=== PATIENT | female | born 1950 | race Caucasian/White ===

== ENCOUNTER 2016-06-02 11:55 | Emergency (ER) | payer OTHER ==
[2016-06-02 12:04] VITALS: BMI 19.7
[2016-06-02 12:05] VITALS: TEMP 97.6
[2016-06-02] MEDS ORDERED: NS 500 ML IV ONE (13:09)
--- NOTE | 2016-06-02 13:12 | EDPRACDOC ---
- General Information Chief Complaint: Fall Stated Complaint: FALL - SYNCOPAL EPISODE- NECK/BACK PAIN Time Seen by Provider: 06/02/16 13:02 Information Source: Patient Home Medications: Home Medications Amlodipine [Norvasc] 5 mg PO DAILY 10/13/12 Estropipate 3 mg PO DAILY 10/13/12 Levothyroxine [Synthroid, Levoxyl] 100 mcg PO DAILY 10/13/12 Aspirin (Enteric Coated) [Ecotrin] 81 mg PO DAILY 02/15/15 Gabapentin [Neurontin] 600 mg PO TID 02/15/15 Multivitamin [Multiple Vitamins] 1 each PO DAILY 02/15/15 Doxycycline [Vibramycin] 100 mg PO BID #14 tab 11/12/15 Hydrocodone/Acetaminophen [Lortab 5-325 mg Tablet] 1 each PO Q4H PRN #15 tablet 11/12/15 Prednisone [Deltasone, Orasone] 1 tabs PO BID #18 tab 11/12/15 Lorazepam [Ativan] 0.5 mg PO HS PRN #7 tab 02/23/16 Cyclobenzaprine HCl [Flexeril] 10 mg PO TID PRN #15 tablet 06/02/16 Hydrocodone Bit/Acetaminophen [Lortab 5/325] 1 tab PO Q4-6H PRN #15 tab Allergies/Adverse Reactions: Allergies Allergy/AdvReac Type Severity Reaction Status Date / Time ciprofloxacin [From Cipro] Allergy Severe Hives* Verified 06/02/16 12:01 ciprofloxacin HCl Allergy Severe Hives* Verified 06/02/16 12:01 [From Cipro] clarithromycin [From Biaxin] Allergy Severe Hives* Verified 06/02/16 12:01 codeine [Codeine] Allergy Severe Hives* Verified 06/02/16 12:01 metronidazole [From Flagyl] Allergy Severe Hives* Verified 06/02/16 12:01 Metronidazole HCl Allergy Severe Hives* Verified 06/02/16 12:01 [From Flagyl] Sulfa (Sulfonamide Allergy Severe Hives* Verified 06/02/16 12:01 Antibiotics) [Sulfa(Sulfonamide Antibiotics)] - History of Present Illness 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 Pt states she had a BM and "cleaned up" and was standing when she passed out. Pt states she doesn't remember passing out but her daughter was standing over her screaming at her. C/o neck and lower back pain. C/o nausea. Denies fever, earache, sore throat, congestion, cp, sob, changes in bowel or bladder, vision changes, loss of control bowel or bladder, wounds. 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 (Medication/ [id number] Dose/Time) EMS Treatment ALS,C-Collar,EKG IV No ED Past Medical History - History Reviewed Yes Nurses notes reviewed and agree except as marked - Patient Medical History Cardiac History: Reports: Hypertension Psychological History: Denies: Depression Additional Past Medical History: RESTLESS LEG SYNDROME Surgical History: Reports: Tonsillectomy/Adnoidectomy - Social Medical History Smoking Status: Heavy tobacco smoker (5 or more cigarettes/day or daily pipe/ cigar) ETOH: None Substance Abuse: None EDM Review of Systems - Review of Systems Constitutional: No Symptoms Reported. negative: Fever, Chills, Weakness, Fatigue, Loss of Appetite Eyes: No Symptoms Reported. negative: Redness, Blurred Vision, Double Vision, Discharge, Pain, Light Sensitive, Photophobia Ears: No Symptoms Reported. negative: Pain, Hearing Loss, Drainage, Ear Pulling Throat: No Symptoms Reported Nose: No Symptoms Reported. negative: Congestion, Bleeding, Discharge, Injection, Swelling, Deformity, Ecchymosis, Tender, Abrasion, Laceration Mouth: No Symptoms Reported. negative: Pain, Drooling Respiratory: Cough Cardiovascular: Syncope. negative: No Symptoms Reported, Chest Pain, Cyanosis, Edema, Orthopnea, Palpitations, PND, Skin Mottling Gastrointestinal: Nausea, Pain Genitourinary: No Symptoms Reported. negative: Dysuria, Hematuria, Frequency, Discharge, Bleeding, Testicular Pain, Neurological: Dizziness Musculoskeletal: Back, Neck Integumentary: No Symptoms Reported. negative: Itching, Rash, Bruising, Wound Allergic/Immunologic: No Symptoms Reported. negative: Hives, Itching Hematologic: No Symptoms Reported. negative: Lymphadenopathy, Easy Bruising, Easy Bleeding Psychiatric: No Symptoms Reported. negative: Anxiety, Depression, Hallucinations, Insomnia, Suicidal - Physical Exam Constitutional: Alert Oriented to: Time, Person, Place Last recorded Vital Signs: Last Vital Signs Temp 97.6 F 06/02/16 12:04 Pulse 74 06/02/16 13:05 Resp 18 06/02/16 13:05 BP 99/75 06/02/16 13:05 Pulse Ox 94 06/02/16 13:05 Oxygen Pulse Oxygen Saturation 94 O2 Device Room Air Oxygen Flow Rate Fraction of Inspired Oxygen ( FIO2) - HEENT Head: Normal ( normocephalic) Eye Exam: Normal (PERRL, EOMI, Sclera white) Oropharynx: Normal (Pharynx:Moist without exudate,Gums-no swelling) Tympanic Membrane: Normal ENT EAC: Normal TMJ: Normal Nose: No Symptoms Reported (septum midline) Neck: In Collar, Midline, Paraspinal Tenderness, Tender - Respiratory/Cardiovascular Respiratory: Normal - CTA (BBS clear to auscultation without adventitious sounds ) Cardiovascular: Normal (RRR without murmur, gallop or rub) - GI Auscultation: Normal (NABS) Palpation: Normal (Soft,No rebound or guarding, non distended) Tenderness: Non tender - Musculoskeletal Back: Lumbar TTP Extremities: Normal (Normal tone, Pulses 2+ No cyanosis or edema, FROM) - Integumentary Skin: Normal, Warm, Dry Lymphatics: Normal (no adenopathy) - Neurologic Memory Impaired: Normal Motor Function: Normal (Normal tone, Pulses 2+ No cyanosis or edema, FROM) Mood Description: Normal Perception: Normal - Differential Diagnosis Anemia, Dysrhythmia, Dehydration, Electrolyte Disorder, Hypoglycemia, Vasovagal - Results 06/02/16 13:14 06/02/16 13:50 06/02/16 16:06 Laboratory Results - last 24 hr 06/02/16 06/02/16 06/02/16 13:14 13:14 13:50 WBC 7.9 RBC 4.96 Hgb 15.5 Hct 45.3 MCV 91 MCH 31.2 MCHC 34.2 RDW 12.7 Plt Count 121 L MPV 9.3 Neut % (Auto) 79.9 H Lymph % (Auto) 9.1 L [place] % (Auto) 10.3 H Eos % (Auto) 0.3 Baso % (Auto) 0.4 Absolute Neuts (auto) 6.24 Absolute Lymphs (auto) 0.71 PT 10.2 INR 1.0 APTT 21.5 L Sodium 139 Potassium 3.6 Chloride 104 Carbon Dioxide 25 Anion Gap 14 BUN 11 Creatinine 1.00 Estimated GFR (MDRD) 56 L Glucose 109 H Calculated Osmolality 268 L Calcium 8.5 Corrected Calcium 9.0 Total Bilirubin 0.4 AST 31 ALT 33 Alkaline Phosphatase 83 Troponin I < 0.01 Total Protein 6.1 L Albumin 3.5 Urine Color Urine Clarity Urine pH Ur Specific [place] Urine Protein Urine Glucose (UA) Urine Ketones Urine Occult Blood Urine Nitrite Urine Bilirubin Urine Urobilinogen Ur Leukocyte Esterase Urine RBC Urine WBC Ur Epithelial Cells Urine Bacteria Hyaline Casts Granular Casts Urine Mucus 06/02/16 15:34 WBC RBC Hgb Hct MCV MCH MCHC RDW Plt Count MPV Neut % (Auto) Lymph % (Auto) [place] % (Auto) Eos % (Auto) Baso % (Auto) Absolute Neuts (auto) Absolute Lymphs (auto) PT INR APTT Sodium Potassium Chloride Carbon Dioxide Anion Gap BUN Creatinine Estimated GFR (MDRD) Glucose Calculated Osmolality Calcium Corrected Calcium Total Bilirubin AST ALT Alkaline Phosphatase Troponin I Total Protein Albumin Urine Color Yellow Urine Clarity Clear Urine pH 6.0 Ur Specific [place] 1.010 Urine Protein Neg Urine Glucose (UA) Neg Urine Ketones 1+ H Urine Occult Blood Neg Urine Nitrite Neg Urine Bilirubin Neg Urine Urobilinogen <2.0 Ur Leukocyte Esterase Neg Urine RBC 0-2 Urine WBC 5-10 H Ur Epithelial Cells 2+ Urine Bacteria 2+ H Hyaline Casts 5-10 H Granular Casts 5-10 H Urine Mucus Mod H - EKG EKG #1 EKG Time: 13:21 Rate: bpm: 65 [place]: Normal Rhythm: NSR Block: None ST: Nonsp (avl) - Diagnostic Imaging L-Spine Image interpreted by: Radiologist IMPRESSION: 1. No fracture or traumatic malalignment. Degenerative changes as noted above. 2. There is a sclerotic focus in the left iliac bone which is nonspecific but may represent a bone island. Head Image interpreted by: Radiologist IMPRESSION: No acute intracranial abnormality. Degenerative disc and facet disease. No acute bony abnormality. Chest Image interpreted by: Radiologist IMPRESSION: Hyperinflation. No active disease. Decision Time to Discharge: 16:07 - Departure Disposition: Home Condition: Good Final Diagnosis: Vasovagal syncope Cervical strain, acute Qualifiers: Encounter type: initial encounter Qualified Code(s): S16.1XXA - Strain of muscle, fascia and tendon at neck level, initial encounter Lumbar strain Qualifiers: Encounter type: initial encounter Qualified Code(s): S39.012A - Strain of muscle, fascia and tendon of lower back, initial encounter Instructions: RICE: Routine Care for Injuries, Core Strengthening Exercises ( GEN), Back Pain, Thoracic (Lumbar) Strain, Syncope (ED) Education/Counseling Given To: Patient Education/Counseling Given Regarding: Diagnosis, Treatment, Follow Up Referrals: None,No Provider [Primary Care Provider] - One Week Nikita Chester II, MD [Staff Physician] - One Week Prescriptions: Cyclobenzaprine HCl [Flexeril] 10 mg PO TID PRN #15 tablet PRN Reason: Pain Hydrocodone Bit/Acetaminophen [Lortab 5/325] 1 tab PO Q4-6H PRN #15 tab PRN Reason: Pain Additional Instructions: Increase fluids. Return for worse or different symptoms.
[2016-06-02 13:27] LABS: AUTOMATED BASOPHIL 0.4 % (0-2); AUTOMATED EOSINOPHIL 0.3 % (0-5); AUTOMATED LYMPH 9.1 % (17-44); AUTOMATED MONOCYTE 10.3 % (3-10); AUTOMATED NEUTROPHIL 79.9 % (45-76); MPV 9.3 fL (7.4-10.4)
[2016-06-02 13:34] LABS: PARTIAL THROMB. TIME 21.5 SEC (22-35)
[2016-06-02 14:27] LABS: BLOOD UREA NITROGEN 11 MG/DL (7-17); CALCIUM 8.5 MG/DL (8.4-10.2); CALCULATED OSMOLALITY 268 MOs/Kg (270-290); CHLORIDE 104 mEq/L (98-107); GLUCOSE 109 MG/DL (70-99); SODIUM LEVEL 139 mEq/L (137-146); TOTAL PROTEIN 6.1 G/DL (6.3-8.2)
--- NOTE | 2016-06-02 14:35 | DIRPT ---
CLINICAL DATA: Syncope, passed out in bathroom. Posterior neck pain. Nausea. EXAM: CT HEAD WITHOUT CONTRAST CT CERVICAL SPINE WITHOUT CONTRAST TECHNIQUE: Multidetector CT imaging of the head and cervical spine was performed following the standard protocol without intravenous contrast. Multiplanar CT image reconstructions of the cervical spine were also generated. COMPARISON: None. FINDINGS: CT HEAD FINDINGS No acute intracranial abnormality. Specifically, no hemorrhage, hydrocephalus, mass lesion, acute infarction, or significant intracranial injury. No acute calvarial abnormality. Visualized paranasal sinuses and mastoids clear. Orbital soft tissues unremarkable. CT CERVICAL SPINE FINDINGS Sits degenerative disc disease at C5-6 and C6-7 with disc space narrowing and spurring. Endplate sclerosis and cyst formation. Degenerative facet disease bilaterally, left greater than right. Normal alignment. Prevertebral soft tissues are normal. No fracture. No epidural or paraspinal hematoma. IMPRESSION: No acute intracranial abnormality. Degenerative disc and facet disease. No acute bony abnormality. Electronically Signed By: Wiley Guerrero M.D. On: 06/02/2016 14:33
--- NOTE | 2016-06-02 15:38 | DIRPT ---
CLINICAL DATA: Fall, syncope. Back pain. EXAM: CHEST 1 VIEW COMPARISON: 11/12/2015 FINDINGS: Mild hyperinflation. Heart and mediastinal contours are within normal limits. No focal opacities or effusions. No acute bony abnormality. Left for scoliosis in the upper thoracic spine. No visible acute bony abnormality. IMPRESSION: Hyperinflation. No active disease. Electronically Signed By: Wiley Guerrero M.D. On: 06/02/2016 15:35
--- NOTE | 2016-06-02 15:42 | DIRPT ---
CLINICAL DATA: Pain after fall. EXAM: LUMBAR SPINE - COMPLETE 4+ VIEW COMPARISON: None. FINDINGS: There is a sclerotic focus in the left iliac bone near the left SI joint. No other bony lesions are identified. Mild curvature of the lumbar spine, apex to the right is identified. No inter pedicular widening is seen on today's study. No pars defects seen on the oblique views. No acute fractures or other malalignment identified. There are degenerative changes with small anterior osteophytes most prominent at L3-4. Lower lumbar facet degenerative changes are noted as well. IMPRESSION: 1. No fracture or traumatic malalignment. Degenerative changes as noted above. 2. There is a sclerotic focus in the left iliac bone which is nonspecific but may represent a bone island. Electronically Signed By: Nile Gould III, M.D On: 06/02/2016 15:40
[2016-06-02 15:58] LABS: LEUKOCYTES/URINE NEG (NEGATIVE); NITRITE/URINE NEG (NEGATIVE); RBC/URINE 0-2 (0-5); URINE OCCULT BLOOD NEG (NEG/TRACE)
[2016-06-02 16:16] VITALS: BP 109/58; PULSE 74
== END 2016-06-02 16:29 | disposition home or self-care (01) ==
LOC: ED 11:55 → EDMC 16:29
DX: R55 Syncope and collapse (principal); S16.1XXA Strain of muscle, fascia and tendon at neck level, initial encounter; S39.012A Strain of muscle, fascia and tendon of lower back, initial encounter; W19.XXXA Unspecified fall, initial encounter; I10 Essential (primary) hypertension; F17.200 Nicotine dependence, unspecified, uncomplicated; Z79.899 Other long term (current) drug therapy
CPT/HCPCS: 36415; 70450; 71010; 72110; 72125; 80053; 81001; 84484; 85025; 85610; 85730; 93005; 96360; 99284